=== PATIENT | male | born 1995 | race Caucasian/White ===

== ENCOUNTER 2024-06-06 10:16 | Emergency (ER) | payer BC, SELFPAY ==
[2024-06-06 10:20] VITALS: BP 161/96; PULSE 88; RESP 16; TEMP 35.9; O2SAT 100; BMI 31.6
--- NOTE | 2024-06-06 12:12 | ED.GIBLEED ---
HPI - GI Bleed General Date Seen: 06/06/24 Chief complaint: GI Bleed Stated complaint: blood in stool Time Seen by Provider: 06/06/24 10:30 Source: patient and family Mode of arrival: ambulatory Limitations: no limitations History of Present Illness HPI Narrative: Patient is a very nice gentleman who this morning had 2 bowel movements showing a lot of blood in the stool. He admits to me that he was constipated for a few days before this, and straining. He has no pain, no previous episodes of bleeding no previous episodes of her needing of colonoscopy, no family history of cancer, or colon cancer. No anticoagulation but does use ibuprofen occasionally. Denies any abdominal pain, elevated use of alcohol, or other issues. MD complaint: blood streaked stool and gross hematochezia Onset (ago): hour(s) Pain Consistency: now resolved Severity: mild Relieving factors: none Exacerbating factors: bowel movement Context: medication/supplement use Associated symptoms: denies other symptoms Treatments Prior to Arrival: none Related Data Home Medications ?Medication ?Instructions ?Recorded ?Confirmed cyclobenzaprine 10 mg tablet 10 mg PO HS 06/06/24 06/06/24 fluticasone propion-salmeterol inhalation 06/06/24 Allergies Allergy/AdvReac Type Severity Reaction Status Date / Time No Known Drug Allergies Allergy Verified 06/06/24 10:27 Review of Systems Status of ROS: Reports: 10 or more systems reviewed and unremarkable except as noted in History and below Exam Narrative: Exam Narrative: Patient is seen in room 3 with medical student, he appears to be in no apparent distress, joking, pupils equal round reactive to light there is no scleral icterus redness, oropharynx is normal, neck is supple, chest is good air entry bilaterally no wheezing crackles noted heart sounds are normal, abdomen is soft there is absolutely no guarding, no organomegaly, bowel sounds are normal. Normal male genitalia is noted. Rectal exam is done, there is an external hemorrhoid that is ruptured, that is bleeding. Rectal exam shows no evidence of masses, anoscopy is done showing no evidence of any blood, higher up, there is no masses or trauma. Const: Vital Signs, click to edit/add: Vital Signs - 24 hr 06/06/24 10:20 Temperature 96.7 F L Pulse Rate [Pulse Oximeter] 88 Respiratory Rate 16 Blood Pressure [Ri ght Upper Arm] 161/96 H Pulse Oximetry 100 Oxygen Delivery Me thod Room Air Documenting provider has reviewed patient's vital signs: yes Course Course ED Course: I discussed with the patient, given what I find, we can cancel blood test was this is a small external hemorrhoid that is ruptured. Should heal up with no problem at all, I would anticipate using stool softeners, avoidance of straining, lots of fluids, rest, bleeding becomes too much, then consideration of cauterization, or follow-up with general surgery or back in the emergency room. Both him and his family members are also comfortable with this plan. Vital Signs Vital signs: Initial Vital Signs Temperature 96.7 F L 06/06/24 10:20 Temperature Source Temporal Artery Scan 06/06/24 10:20 Pulse Rate 88 06/06/24 10:20 Respiratory Rate 16 06/06/24 10:20 Blood Pressure 161/96 H 06/06/24 10:20 Blood Pressure Mean 117 H 06/06/24 10:20 Blood Pressure Position Sitting 06/06/24 10:20 Pulse Oximetry 100 06/06/24 10:20 Oxygen Delivery Method Room Air 06/06/24 10:20 Vital Signs Temperature 96.7 F L 06/06/24 10:20 Pulse Rate 88 06/06/24 10:20 Respiratory Rate 16 06/06/24 10:20 Blood Pressure 161/96 H 06/06/24 10:20 Pulse Oximetry 100 06/06/24 10:20 Oxygen Delivery Method Room Air 06/06/24 10:20 Temperature 96.7 F L 06/06/24 10:20 Pulse Rate 88 06/06/24 10:20 Respiratory Rate 16 06/06/24 10:20 Blood Pressure 161/96 H 06/06/24 10:20 Pulse Oximetry 100 06/06/24 10:20 Oxygen Delivery Method Room Air 06/06/24 10:20 Discharge Plan Discharge Clinical Impression: Hemorrhoids Patient Disposition: Home, Self-Care Condition: Stable Instructions: Hydrocortisone (Into the rectum) (Anusol-HC, Procto-Rick,..., Hemorrhoids (ED), Hemorrhoids (DC), Rectal Bleeding (ED), Sitz Bath (DC), Hemorrhoidectomy (DC) Additional Instructions: Home rest use of stool softener such as Colace, this is [id number] u can take this twice daily for the next 5-7 days, increase your fluid intake, you may also be able to use a hemorrhoidal creams such as Anusol. Basically which he wanted decrease is straining, coughing, or these type of activities, if the bleeding gets super bad and on stop a ball then come back in and we can cauterize this area, but I would suggest this is probably at an extreme. Light activity, no heavy lifting greater than 20- 30 lb, I know Activity Level: Light activity Prescriptions: No Action fluticasone propion-salmeterol [Advair Diskus] inhalation cyclobenzaprine 10 mg tablet 10 mg PO HS Stand Alone Forms: [employer] Info Instructions
== END 2024-06-06 12:10 | disposition home or self-care (01) ==
LOC: ED 12:10
PROVIDERS: Emergency Provider Family Medicine
DX: K64.9 Unspecified hemorrhoids (principal)
CPT/HCPCS: 80048; 80076; 82270; 85025; 85610; 85730; 99283; 99284